=== PATIENT | female | born 1955 | race Caucasian/White ===

== ENCOUNTER → 2021-01-01 01:58 | Outpatient (CLI) | payer OTHER, MEDICARE, SELFPAY ==
[2021-01-01 19:28] LABS: SARS-CoV-2 RNA PCR Negative
== END ==
PROVIDERS: PCP Family Medicine; Visit Provider Internal Medicine Gastroenterology
DX: Z20.822 Contact with and (suspected) exposure to COVID-19 (principal)
CPT/HCPCS: C9803; U0003; U0005

== ENCOUNTER 2021-01-05 01:03 | Day surgery (SDC) | payer OTHER, MEDICARE, SELFPAY ==
[2020-12-28 14:44] VITALS: BMI 45.1
--- NOTE | 2021-01-05 07:31 | WPDANESEPPF ---
Anes - Initial Pre Proc Eval Procedure: Operation Date: 01/05/21 13:15 Proposed Procedures p Screening Colonoscopy - Amauri Masters MD Date/Time: 01/05/21 07:31 Surgeon: Amauri Masters MD Pre Op Diagnosis: neoplasm screening Patient Data Age: 65 Gender: F Height: 1.65 m Weight: 123 kg Allergies Allergy/AdvReac Type Severity Reaction Status Date / Time No Known Allergies Allergy Mild Verified 01/05/21 12:04 Home Medications Medication Instructions Recorded Confirmed Type anastrozole 1 mg tablet 1 mg PO DAILY 11/04/20 12/28/20 History lisinopril 20 2 tablet PO DAILY #180 tablet 11/04/20 12/28/20 Rx mg-hydrochlorothiazide 12.5 mg tablet Patient hx anesthesia problems: none Family hx anesthesia problems: none PMFSH Past Medical History Medical History (Updated 01/05/21 @ 12:25 by Amauri Masters MD) Chronic back pain Colon cancer screening Dyslipidemia Essential (primary) hypertension Gallstones History of left breast cancer Unspecified osteoarthritis, unspecified site mild-both knees and back Surgical History Surgical History History of cholecystectomy History of lumpectomy left breast - 01/2019 [place] teeth extracted around 1986 Family History Family History (Updated 11/04/20 @ 11:10 by Carol Ann Davis [facility]) Father Diabetes mellitus Grandparent Diabetes mellitus Mother Family history of malignant neoplasm of stomach Sibling Family history of malignant neoplasm of uterus Sibling ALS (amyotrophic lateral sclerosis) Uterine cancer Social History Social History Smoking status: Never smoker Second hand tobacco smoke exposure: No Additional smoking assessment comments: ex- and mother smoked around her in the past Alcohol intake: current Drinks per week: 0 Alcohol use details: once or twice a year Substance use: never Substance use type: does not use Living arrangements: with family Gender identity (if verbalized by the patient): Female Spiritual care concerns: No Anes - Eval Final PreProcedure Day of Procedure 01/05/21 07:31 Patient weight: morbidly obese Heart: regular rate and rhythm Lungs: clear to auscultation and normal air movement Airway: Mallampati scale class II Neurological: alert and oriented Last oral intake: >/= 8 hours ASA classification: III Emergent: no Anesthetic plan: proceed Anesthesia type and monitoring: general GIVS and standard monitoring Informed Consent: The patient's anesthetic plan and its attendant risks and benefits were discussed with the patient/family/POA. Questions were solicited and answers provided to the satisfaction of the patient/family/POA.
[2021-01-05 12:06] VITALS: BP 180/79; PULSE 72; RESP 20; TEMP 36.4; O2SAT 97; BMI 44.4
[2021-01-05] MEDS: LACTATED RINGERS 1,000 ML 150 ML IV CONT (12:13)
--- NOTE | 2021-01-05 12:15 | P.PNAN_ITS ---
Anes - Initial Pre Proc Eval Procedure: Operation Date: 01/05/21 13:15 Proposed Procedures p Screening Colonoscopy - Amauri Masters MD Date/Time: 01/05/21 12:15 Surgeon: Amauri Masters MD Pre Op Diagnosis: neoplasm screening Patient Data Age: 65 Gender: F Height: 1.65 m Weight: 121.1 kg Last Vital Signs Temp 97.6 F 01/05/21 12:06 Pulse 72 01/05/21 12:06 Resp 20 01/05/21 12:06 BP 180/79 H 01/05/21 12:06 Pulse Ox 97 01/05/21 12:06 Allergies Allergy/AdvReac Type Severity Reaction Status Date / Time No Known Allergies Allergy Mild Verified 01/05/21 12:04 Home Medications Medication Instructions Recorded Confirmed Type anastrozole 1 mg tablet 1 mg PO DAILY 11/04/20 12/28/20 History lisinopril 20 2 tablet PO DAILY #180 tablet 11/04/20 12/28/20 Rx mg-hydrochlorothiazide 12.5 mg tablet Patient hx anesthesia problems: none Family hx anesthesia problems: none PMFSH Past Medical History Medical History (Updated 10/07/19 @ 14:16 by Jacques Garcia MD) Chronic back pain Dyslipidemia Essential (primary) hypertension Gallstones History of left breast cancer Unspecified osteoarthritis, unspecified site mild-both knees and back Surgical History Surgical History History of cholecystectomy History of lumpectomy left breast - 01/2019 [place] teeth extracted around 1986 Family History Family History (Updated 11/04/20 @ 11:10 by Carol Ann Davis [facility]) Father Diabetes mellitus Grandparent Diabetes mellitus Mother Family history of malignant neoplasm of stomach Sibling Family history of malignant neoplasm of uterus Sibling ALS (amyotrophic lateral sclerosis) Uterine cancer Social History Social History Smoking status: Never smoker Second hand tobacco smoke exposure: No Additional smoking assessment comments: ex- and mother smoked around her in the past Alcohol intake: current Drinks per week: 0 Alcohol use details: once or twice a year Substance use: never Substance use type: does not use Living arrangements: with family Gender identity (if verbalized by the patient): Female Spiritual care concerns: No Anes - Eval Final PreProcedure Day of Procedure 01/05/21 12:15 Patient weight: morbidly obese Heart: regular rate and rhythm Lungs: clear to auscultation Airway: Mallampati scale class II Neurological: alert and oriented Last oral intake: >/= 8 hours ASA classification: III Emergent: no Anesthetic plan: proceed Anesthesia type and monitoring: general GIVS and standard monitoring Informed Consent: The patient's anesthetic plan and its attendant risks and benefits were discussed with the patient/family/POA. Questions were solicited and answers provided to the satisfaction of the patient/family/POA.
--- NOTE | 2021-01-05 12:18 | P.PNAN_ITS ---
Anes - Initial Pre Proc Eval Procedure: Operation Date: 01/05/21 13:15 Proposed Procedures p Screening Colonoscopy - Amauri Masters MD Date/Time: 01/05/21 12:18 Surgeon: Amauri Masters MD Pre Op Diagnosis: neoplasm screening Patient Data Age: 65 Gender: F Height: 1.65 m Weight: 121.1 kg Last Vital Signs Temp 97.6 F 01/05/21 12:06 Pulse 72 01/05/21 12:06 Resp 20 01/05/21 12:06 BP 180/79 H 01/05/21 12:06 Pulse Ox 97 01/05/21 12:06 Allergies Allergy/AdvReac Type Severity Reaction Status Date / Time No Known Allergies Allergy Mild Verified 01/05/21 12:04 Home Medications Medication Instructions Recorded Confirmed Type anastrozole 1 mg tablet 1 mg PO DAILY 11/04/20 12/28/20 History lisinopril 20 2 tablet PO DAILY #180 tablet 11/04/20 12/28/20 Rx mg-hydrochlorothiazide 12.5 mg tablet Patient hx anesthesia problems: none Family hx anesthesia problems: none PMFSH Past Medical History Medical History (Updated 10/07/19 @ 14:16 by Jacques Garcia MD) Chronic back pain Dyslipidemia Essential (primary) hypertension Gallstones History of left breast cancer Unspecified osteoarthritis, unspecified site mild-both knees and back Surgical History Surgical History History of cholecystectomy History of lumpectomy left breast - 01/2019 [place] teeth extracted around 1986 Family History Family History (Updated 11/04/20 @ 11:10 by Carol Ann Davis [facility]) Father Diabetes mellitus Grandparent Diabetes mellitus Mother Family history of malignant neoplasm of stomach Sibling Family history of malignant neoplasm of uterus Sibling ALS (amyotrophic lateral sclerosis) Uterine cancer Social History Social History Smoking status: Never smoker Second hand tobacco smoke exposure: No Additional smoking assessment comments: ex- and mother smoked around her in the past Alcohol intake: current Drinks per week: 0 Alcohol use details: once or twice a year Substance use: never Substance use type: does not use Living arrangements: with family Gender identity (if verbalized by the patient): Female Spiritual care concerns: No Anes - Eval Final PreProcedure Day of Procedure 01/05/21 12:18 Patient weight: morbidly obese Heart: regular rate and rhythm Lungs: clear to auscultation Airway: Mallampati scale class II Neurological: alert and oriented Last oral intake: >/= 8 hours ASA classification: III Emergent: no Anesthetic plan: proceed Anesthesia type and monitoring: general GIVS and standard monitoring Informed Consent: The patient's anesthetic plan and its attendant risks and benefits were discussed with the patient/family/POA. Questions were solicited and answers provided to the satisfaction of the patient/family/POA.
--- NOTE | 2021-01-05 12:25 | PM.HPGS ---
History of Present Illness History of Present Illness Consent: Risks, benefits, and alternatives have been discussed and questions answered. Patient agrees to proceed with procedure. Chief complaint: neoplasm screening Narrative: Priscila Stovall is a 65 year old female here for screening colonoscopy, last one 12 years ago Review of Systems Constitutional: Constitutional: Denies headache(s) and Denies weakness Eyes: Eyes: Denies blurry vision ENT: Reports Normal hearing present, Denies headache(s) and Denies neck pain Cardiovascular: Cardiovascular: Denies chest pain and Denies dyspnea Respiratory: Respiratory: Denies dyspnea Gastrointestinal: Gastrointestinal: Reports no additional gastrointestinal complaints Genitourinary: Genitourinary: Denies dysuria Musculoskeletal: Musculoskeletal: Denies neck pain Integumentary/Breasts: Skin/Breast: Denies dry skin Neurologic: Reports Normal hearing present, Denies headache(s) and Denies weakness Psychiatric: Psychiatric: Denies anxiety Endocrine: Endocrine: Denies change in body appearance Hematologic/Lymphatic: Hematologic/Lymphatic: Denies easy bleeding Allergic/Immunologic: Allergic/Immunologic: Denies urticaria PMFSH Past Medical History Medical History (Updated 01/05/21 @ 12:25 by Amauri Masters MD) Chronic back pain Colon cancer screening Dyslipidemia Essential (primary) hypertension Gallstones History of left breast cancer Unspecified osteoarthritis, unspecified site mild-both knees and back Surgical History Surgical History History of cholecystectomy History of lumpectomy left breast - 01/2019 [place] teeth extracted around 1986 Family History Family History (Updated 11/04/20 @ 11:10 by Carol Ann Davis [facility]) Father Diabetes mellitus Grandparent Diabetes mellitus Mother Family history of malignant neoplasm of stomach Sibling Family history of malignant neoplasm of uterus Sibling ALS (amyotrophic lateral sclerosis) Uterine cancer Social History Social History Smoking status: Never smoker Second hand tobacco smoke exposure: No Additional smoking assessment comments: ex- and mother smoked around her in the past Alcohol intake: current Drinks per week: 0 Alcohol use details: once or twice a year Substance use: never Substance use type: does not use Living arrangements: with family Gender identity (if verbalized by the patient): Female Spiritual care concerns: No Meds Home Medications and Allergies Home Medications Medication Instructions Recorded Confirmed Type anastrozole 1 mg tablet 1 mg PO DAILY 11/04/20 12/28/20 History lisinopril 20 2 tablet PO DAILY #180 tablet 11/04/20 12/28/20 Rx mg-hydrochlorothiazide 12.5 mg tablet Allergies Allergy/AdvReac Type Severity Reaction Status Date / Time No Known Allergies Allergy Mild Verified 01/05/21 12:04 Vital Signs Vital Signs - 24 hr 01/05/21 12:06 Temperature 97.6 F Pulse Rate 72 Respiratory Rate 20 Blood Pressure 180/79 H Pulse Oximetry 97 Exam Const: General: comfortable and no acute distress HENMT: General nose exam: Normal nares present Eyes: General: appearance normal, both eyes and all related structures Neck: Neck: no JVD Resp: Auscultation: clear to auscultation bilaterally Cardio: Rate: regular rate Rhythm: regular rhythm GI: Inspection: non-distended GI Palp: Yes Soft to palpation Skin: General skin exam: normal color Neuro: General: gait normal Speech: normal speech Extrem: General: normal to inspection Psych: Mental Status: mental status grossly normal Assessment and Plan Assessment and plan (1) Colon cancer screening: Code(s): Z12.11 - Encounter for screening for malignant neoplasm of colon Status: Acute Assessment and Plan: colon
[2021-01-05 13:19] VITALS: BP 111/54; PULSE 73; RESP 16; O2SAT 95
[2021-01-05 13:29] VITALS: BP 124/53; PULSE 68; RESP 19; O2SAT 98
[2021-01-05 13:39] VITALS: BP 124/45; PULSE 56; RESP 22; O2SAT 100
== END 2021-01-05 13:47 | disposition home or self-care (01) ==
PROVIDERS: PCP Physician Assistant; Visit Provider Internal Medicine Gastroenterology
PROC: 0DJD8ZZ Inspection of Lower Intestinal Tract, Via Natural or Artificial Opening Endoscopic (ICD-10-PCS; CPT 45378; principal; 2021-01-05 13:15)
DX: Z12.11 Encounter for screening for malignant neoplasm of colon (principal); K57.30 Diverticulosis of large intestine without perforation or abscess without bleeding; K63.5 Polyp of colon; K64.8 Other hemorrhoids; I10 Essential (primary) hypertension; E78.5 Hyperlipidemia, unspecified; Z85.3 Personal history of malignant neoplasm of breast; Z79.811 Long term (current) use of aromatase inhibitors; E66.01 Morbid (severe) obesity due to excess calories; Z68.41 Body mass index [BMI] 40.0-44.9, adult
CPT/HCPCS: 45385; 88305; J2704; J7120

== ENCOUNTER 2022-11-23 07:59 | Outpatient (CLI) | payer MEDICARE, SELFPAY ==
--- NOTE | ~2022-11-23 | XR_ITS ---
Clinical Indication: Dyspnea PA and lateral views of the chest: Comparison: None Findings: The lungs are clear, without evidence of focal consolidation or pleural effusion. Cardiome diastinal silhouette is within normal limits. Bones and soft tissues are unremarkable. Impression: Normal chest. Reviewed, dictated and finalized at location . Impression: Normal chest.
--- NOTE | 2022-11-23 08:38 | ECG_ITS ---
Measurements Intervals [place] Rate: 86 P: 36 UT: 141 QRS: 6 QRSD: 87 T: 49 QT: 378 QTc: 454 Interpretive Statements SINUS RHYTHM LOW QRS VOLTAGE IN PRECORDIAL LEADS [QRS DEFLECTION < 1.0 mV IN CHEST LEADS] MINIMAL ST DEPRESSION [0.025+ mV ST DEPRESSION] NO PREVIOUS ECG AVAILABLE FOR COMPARISON Electronically Signed On 11-23-2022 10:19:22 CDT by Zoey Murray M.D.
== END 2022-11-23 08:00 | disposition home or self-care (01) ==
PROVIDERS: PCP Family Medicine; Visit Provider Physician Assistant Medical
DX: R06.00 Dyspnea, unspecified (principal); R07.89 Other chest pain; R94.31 Abnormal electrocardiogram [ECG] [EKG]
CPT/HCPCS: 71046; 93005

== ENCOUNTER 2023-11-28 10:41 | Outpatient (CLI) | payer MEDICARE, SELFPAY ==
--- NOTE | ~2023-11-28 | US_ITS ---
EXAMINATION: US thyroid DATE: 11/28/2023 11:00 INDICATION: Disorder of thyroid, unspecified. TECHNIQUE: Multiple ultrasound images of the thyroid were obtained. COMPARISON: None. FINDINGS: The right thyroid lobe measures 6.8 x 3.2 x 2.9 cm. The left thyroid lobe measures 7.6 x 2.6 x 2.2 c m. The thyroid is diffusely heterogeneous and hypoechoic filled with ill-defined nodules of similar ultrasound appearance without normal intervening parenchyma. Vascularity is normal. IMPRESSION: 1. Multinodular goiter, likely not clinically significant. Reviewed, dictated and finalized at location A.
== END 2023-11-28 10:42 ==
LOC: MICIMG 10:42
PROVIDERS: PCP Family Medicine; Visit Provider Student in an Organized Health Care Education/Training Program
DX: E04.2 Nontoxic multinodular goiter (principal)
CPT/HCPCS: 76536